=== PATIENT | female | born 1930 | race Caucasian/White ===

== ENCOUNTER 2016-06-27 09:10 | Emergency (ER) | payer OTHER, MEDICARE ==
[~2016-06-27] VITALS: Ht 162.6 cm; Wt 59.0 kg
[2016-06-27 09:16] VITALS: BP 177/92
--- NOTE | 2016-06-27 09:26 | ED GI/GU/ABDOMINAL COMPLAINT ---
History of Present Illness General Chief Complaint: General Adult Stated Complaint: CONSTIPATION Source: patient, family, old records Exam Limitations: no limitations Vital Signs & Intake/Output Vital Signs & Intake/Output Vital Signs Date Time Temp Pulse Resp B/P Pulse O2 O2 Flow FiO2 Ox Delivery Rate 06/27 1024 Room Air Room Air 06/27 0916 97.9 69 18 177/92 98 Room Air Allergies Coded Allergies: Penicillins (Severe, RASH 06/27/16) benazepril (From LOTENSIN) (Severe, RASH 06/27/16) buspirone (From BUSPAR) (Severe, RASH 06/27/16) esomeprazole (From NEXIUM) (Severe, RASH 06/27/16) nitrofurantoin (From MACRODANTIN) (Severe, RASH 06/27/16) oxycodone (From OXYCONTIN) (Severe, "WITHDRAWAL SYMPTOMS" 06/27/16) Reconcile Medications Acetaminophen (Tylenol Extra Strength) 500 MG TABLET 1 TAB PO TID PRN PAIN ( Reported) Bimatoprost (Lumigan) 0.01 % DROPS 1 GTT OPH QPM EYE (Reported) Brimonidine Tartrate/Timolol (Combigan Eye Drops) 0.2 %-0.5 % DROPS 1 DRP OP BID EYE (Reported) Calcium Carbonate/Vitamin D3 (Os-Sebastian 500+D3 Caplet) 500 MG-200 TABLET 1 TAB PO DAILY SUPPLEMENT (Reported) Flaxseed Oil (Linseed Oil) 1 ML OIL 1 TBSP PO DAILY SUPPLEMENT (Reported) Lactase (Dairy Aid) 3,000 UNIT TAB.CHEW 1 TAB PO TID SUPPLEMENT (Reported) Lorazepam 0.5 MG TABLET 1 TAB PO DAILY NEEDED PRN ANXIETY (Reported) Multivitamin (Daily Multiple Vitamin) 1 EACH TABLET 1 TAB PO DAILY SUPPLEMENT (Reported) Triamcinolone Acetonide (Nasacort) 55 MCG SPRAY 2 SPRAY NASB DAILY PRN UNKNOWN (Reported) Triage Note: 85 Y/O FEMALE C/O "SORENESS" ACROSS ABDOMEN, THE FEELING OF "FULLNESS" AFTER EATING AND NAUSEA X 1 WEEK. REPORTS CONSTIPATION BUT HAS BEEN TAKING OTC LAXATIVES WITH SOME RELIEF, LAST BM THIS AM. STATES SHE HAS A LOT OF GAS AND "BLOATING". ALSO C/O "PRESSURE WHERE MY BLADDER IS". DENIES URINARY SYMPTOMS. AFEBRILE. Triage Nurses Notes Reviewed? yes ? N Is pt currently ? No Onset: Gradual Duration: day(s): (3) Timing: recent history Location: LOWER ABDOMEN Radiation: no radiation No Modifying Factors: none Associated Symptoms: ABDOMINAL FULLNESS HPI: This is an 85-year-old female with history of diverticulosis who presents via chief complaint of lower abdominal pain since Thursday. She states that she was put on anbitiocs [address] Kate. No fever or chills. She feels some lower abdominal fullness. Past History Travel History Traveled to [place] past 21 day No Medical History Any Pertinent Medical History? 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 No Review of Systems Review of Systems Constitutional: Denies: chills, fever. EENTM: Reports: no symptoms. Respiratory: Denies: cough, short of breath. Cardiovascular: Denies: chest pain, palpitations. GI: Reports: abdominal pain, bloating, nausea. Denies: vomiting. Genitourinary: Reports: no symptoms. Musculoskeletal: Reports: no symptoms. Skin: Reports: no symptoms. Neurological/Psychological: Reports: no symptoms. Hematologic/Endocrine: Denies: bruising, bleeding, polyuria, polydipsia. Immunologic/Allergic: Denies: splenectomy. All Other Systems: Reviewed and Negative Physical Exam Physical Exam General Appearance: well developed/nourished, alert, awake, anxious, mild distress Head: atraumatic, normal appearance Eyes: Bilateral: normal appearance, PERRL, EOMI. Ears, Nose, Throat, Mouth: hearing grossly normal, moist mucous membrane Neck: normal inspection, supple, full range of motion Respiratory: normal breath sounds, chest non-tender, no respiratory distress Cardiovascular: regular rate/rhythm Peripheral Pulses: 2+ radial (R), 2+ radial (L) Gastrointestinal: normal bowel sounds, soft, non-tender Back: normal inspection Extremities: normal range of motion Neurologic/Psych: no motor/sensory deficits, awake, alert, oriented x 3, normal gait Skin: intact, normal color, warm/dry Core Measures ACS in differential dx? No Severe Sepsis Present: No Septic Shock Present: No Progress Differential Diagnosis: SBO, diverticulitis Plan of Care: Orders Procedure Date/time Status URINALYSIS 06/27 957 Complete LIPASE 06/27 957 Complete LACTIC ACID 06/27 957 Complete COMPREHENSIVE METABOLIC PANEL 06/27 957 Complete CBC WITHOUT DIFFERENTIAL 06/27 957 Complete Laboratory Tests 06/27/16 1050: Urine Color YEL, Urine Clarity CLEAR, Urine pH 6.5, Ur Specific [place] 1.015, Urine Protein NEG, Urine Ketones NEG, Urine Nitrite NEG, Urine Bilirubin NEG, Urine Urobilinogen 0.2, Ur Leukocyte Esterase TRACE H, Ur Microscopic SEDIMENT EXAMINED, Urine RBC RARE, Urine WBC RARE, Ur Epithelial Cells RARE, Hyaline Casts FEW H, Urine Hemoglobin NEG, Urine Glucose NEG 06/27/16 1018: Anion Gap 11, Estimated GFR > 60, BUN/Creatinine Ratio 15.7, Glucose 104 H, Lactic Acid 1.0, Calcium 9.7, Total Bilirubin 0.8, AST 24, ALT 28, Alkaline Phosphatase 76, Total Protein 7.5, Albumin 4.4, Globulin 3.1, Albumin/Globulin Ratio 1.4, Lipase 216, CBC w Diff NO MAN DIFF REQ, RBC 4.30, MCV 91.2, MCH 31.2 H, RDW 13.5, MPV 9.7, Gran % 74.0, Lymphocytes % 15.8 L, Monocytes % 7.8, Eosinophils % 1.8, Basophils % 0.6, Absolute Granulocytes 4.1, Absolute Lymphocytes 0.9 L, Absolute Monocytes 0.4, Absolute Eosinophils 0.1, Absolute Basophils 0, PUBS MCHC 34.2 Diagnostic Imaging: Viewed by Me: CT Scan. Discussed w/RAD: CT Scan. Radiology Impression: PATIENT: JEEVAN WEBB PRESENT AGE: 85 PATIENT ACCOUNT NO: [id number] : 31 LOCATION: [facility] ORDERING PHYSICIAN: ADAMA HERMOSILLO MD SERVICE DATE: 06/27/16 EXAM TYPE: CAT - CT ABD & PELVIS W IV CONTRAST EXAMINATION: CT ABDOMEN AND PELVIS WITH CONTRAST CLINICAL INFORMATION: Suprapubic, left lower quadrant pain. COMPARISON: None. TECHNIQUE: Multidetector volumetric imaging was performed of the abdomen and pelvis before and after the IV administration of 95 mL of Optiray 320 intravenous contrast. Sagittal and coronal reformatted images were obtained on the technologist's workstation. DLP: 264 mGy-cm. FINDINGS: LUNG BASES: Discoid atelectasis and/or scarring at the bilateral lung bases. Mild emphysematous changes are suggested. The heart is enlarged. LIVER AND SPLEEN: There is a nonenlarged hepatic venous structure in the right lobe of the liver superiorly and posteriorly draining directly into the inferior vena cava which demonstrates opacification similar to the portal vein suggesting a direct communication between the portal and venous systems, likely chronic in the result of previous biopsy or trauma less likely developmental. This is likely chronic and incidental. Spleen is not enlarged. PANCREAS GALLBLADDER AND BILIARY TREE: The main pancreatic duct appears upper limits of normal for size and appears to drain into the minor papilla. Uncinate process appears to drain into the major papilla. Findings suggest pancreas disease divisum. This is also likely incidental. Gallbladder and biliary tree are nondilated. KIDNEYS, URETERS, AND ADRENALS: Unremarkable. URINARY BLADDER: Unremarkable. GI TRACT: Colon is redundant and stool filled. There is extensive sigmoid colon diverticulosis without evidence of acute diverticulitis at this time. There is a normal- appearing appendix in the right lower quadrant. Small bowel appears unremarkable. PERITONEAL CAVITY: No intraperitoneal free fluid is seen. No mesenteric adenopathy. RETROPERITONEUM: Mild atherosclerotic changes without aneurysmal dilatation. There is no evidence of lymphadenopathy. PELVIC ORGANS: There is a 2.3 cm left adnexal cyst also likely incidental. OSSEOUS STRUCTURES: No focal destructive or sclerotic lesion to suggest an aggressive process. There is mild diffuse osteopenia with degenerative changes in the lower most 2 lumbar regions. ANTERIOR ABDOMINAL WALL AND SOFT TISSUES: Intact without evidence of underlying hernia. There is no inguinal adenopathy. IMPRESSION: 1. There is no evidence of acute intra-abdominal process. 2. Redundant and stool filled colon with extensive sigmoid colon diverticulosis, there is no evidence of acute diverticulitis. 3. 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 4. 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 5. Small left ovarian cyst. DICTATED BY: KATHERINE GIPSON MD DATE/TIME DICTATED:06/27/161140 ACID RECOVERY OPERATOR:JUVENCIO DATE/TIME TRANSCRIBED:01/20/17 / 1141 CONFIDENTIAL, DO NOT COPY WITHOUT APPROPRIATE AUTHORIZATION. <Electronically signed in Other Vendor System> SIGNED BY: KATHERINE GIPSON MD 06/27/16 1208 Initial ED EKG: none Departure Departure Time of Disposition: 1226 Disposition: HOME OR SELF CARE Condition: Stable Clinical Impression Primary Impression: Diverticulosis Referrals: ARON YOUNG,MADISYN MOLINA MD,RACHELLE Hudson (PCP/Family) Additional Instructions: Complete your antibiotics and follow up with Dr. Kate in the office. Return to the ER for any changing or worsening symptoms. Departure Forms: Customer Survey General Discharge Information
[2016-06-27] MEDS ORDERED: OS-CAL 500+D31 EAC1 PO (09:29)
[2016-06-27] MEDS ORDERED: DAIRY AID3000 UNIT PO (09:30)
[2016-06-27] MEDS ORDERED: LORAZEPAM0.5 M1 PO (09:31)
[2016-06-27] MEDS ORDERED: LINSEED OIL1 ML PO (09:31)
[2016-06-27] MEDS ORDERED: DAILY MULTIPLE1 EACH PO (09:32)
[2016-06-27] MEDS ORDERED: NASACORT16.9 ML NASB (09:33)
[2016-06-27] MEDS ORDERED: TYLENOL EXTRA500 M2 PO (09:33)
[2016-06-27] MEDS ORDERED: COMBIGAN EYE DRO5 ML OP (09:33)
[2016-06-27] MEDS ORDERED: LUMIGAN2.5 ML OPH (09:34)
[2016-06-27 10:29] LABS: ABSOLUTE BASOPHIL COUNT 0 /CUMM (0.0-0.2); ABSOLUTE EOSINOPHIL COUNT 0.1 /CUMM (0.0-0.7); ABSOLUTE GRANULOCYTE CT 4.1 /CUMM (1.4-6.5); ABSOLUTE LYMPH COUNT 0.9 /CUMM (1.2-3.4); ABSOLUTE MONOCYTE COUNT 0.4 /CUMM (0.10-0.60); BASOPHIL % 0.6 % (0.0-2.0); EOSINOPHIL % 1.8 % (0-5); HEMATOCRIT 39.2 % (37-47); MEAN CORPUSCULAR HGB 31.2 PG (27.0-31.0); MEAN CORPUSCULAR HGB CONC 34.2 G/DL (33.0-37.0); MEAN CORPUSCULAR VOLUME 91.2 FL (81.0-99.0); MEAN PLATELET VOLUME 9.7 FL (7.4-10.4); PLATELET COUNT 187 /CUMM (130-400); RBC DISTRIBUTION WIDTH 13.5 % (11.5-14.5); WHITE BLOOD CELL COUNT 5.5 /CUMM (4.8-10.8)
--- NOTE | 2016-06-27 12:08 | CT SCAN REPORT ---
EXAMINATION: CT ABDOMEN AND PELVIS WITH CONTRAST CLINICAL INFORMATION: Suprapubic, left lower quadrant pain. COMPARISON: None. TECHNIQUE: Multidetector volumetric imaging was performed of the abdomen and pelvis before and after the IV administration of 95 mL of Optiray 320 intravenous contrast. Sagittal and coronal reformatted images were obtained on the technologist's workstation. DLP: 264 mGy-cm. FINDINGS: LUNG BASES: Discoid atelectasis and/or scarring at the bilateral lung bases. Mild emphysematous changes are suggested. The heart is enlarged. LIVER AND SPLEEN: There is a nonenlarged hepatic venous structure in the right lobe of the liver superiorly and posteriorly draining directly into the inferior vena cava which demonstrates opacification similar to the portal vein suggesting a direct communication between the portal and venous systems, likely chronic in the result of previous biopsy or trauma less likely developmental. This is likely chronic and incidental. Spleen is not enlarged. PANCREAS GALLBLADDER AND BILIARY TREE: The main pancreatic duct appears upper limits of normal for size and appears to drain into the minor papilla. Uncinate process appears to drain into the major papilla. Findings suggest pancreas disease divisum. This is also likely incidental. Gallbladder and biliary tree are nondilated. KIDNEYS, URETERS, AND ADRENALS: Unremarkable. URINARY BLADDER: Unremarkable. GI TRACT: Colon is redundant and stool filled. There is extensive sigmoid colon diverticulosis without evidence of acute diverticulitis at this time. There is a normal-appearing appendix in the right lower quadrant. Small bowel appears unremarkable. PERITONEAL CAVITY: No intraperitoneal free fluid is seen. No mesenteric adenopathy. RETROPERITONEUM: Mild atherosclerotic changes without aneurysmal dilatation. There is no evidence of lymphadenopathy. PELVIC ORGANS: There is a 2.3 cm left adnexal cyst also likely incidental. OSSEOUS STRUCTURES: No focal destructive or sclerotic lesion to suggest an aggressive process. There is mild diffuse osteopenia with degenerative changes in the lower most 2 lumbar regions. ANTERIOR ABDOMINAL WALL AND SOFT TISSUES: Intact without evidence of underlying hernia. There is no inguinal adenopathy. IMPRESSION: 1. There is no evidence of acute intra-abdominal process. 2. Redundant and stool filled colon with extensive sigmoid colon diverticulosis, there is no evidence of acute diverticulitis. 3. 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 4. 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 5. Small left ovarian cyst.
== END 2016-06-27 12:40 ==
LOC: ERH 09:10
PROVIDERS: Emergency Medicine
DX: K57.90 Diverticulosis of intestine, part unspecified, without perforation or abscess without bleeding (principal)
CPT/HCPCS: 74177; 81001